=== PATIENT | female | born 1960 | race Two or more races ===

== ENCOUNTER 2023-01-17 15:37 | Inpatient (IN) | payer MEDICAID ==
[~2023-01-17] VITALS: Ht 160 cm; Wt 68.2 kg
[2023-01-17 16:20] LABS: Basophils # (auto) 0 10 ^3/uL (0-0.2); Lymphocytes # (auto) 0.3 10 ^3/uL (0.4-5.4); White Blood Cell 2.1 10^3/uL (4.4-10.8)
[2023-01-17 16:21] LABS: Basophils % (auto) 0.7 % (0.0-2.0); Eosinophils # (auto) 0.1 10 ^3/uL (0-0.8); Eosinophils % (auto) 2.4 % (0.0-7.0); Hematocrit 14.4 % (36.0-46.0); Mean Corpuscular Hemoglobin 20.5 pg (28.0-32.0); Mean Corpuscular Hgb Conc. 28.6 g/dL (32.0-36.0); Mean Corpuscular Volume 71.8 fL (80.0-100.0); Monocytes # (auto) 0.4 10 ^3/uL (0-1.3); Monocytes % (auto) 17.7 % (0.0-12.0); Neutrophils # (auto) 1.3 10 ^3/uL (1.6-8.6); Neutrophils % (auto) 64.2 % (37.0-80.0); Nucleated Red Blood Cells % 0.2 %; Red Blood Cells 2.01 10^6/uL (4.0-5.20)
[2023-01-17 16:28] LABS: Red Cell Distribution Width 20.6 % (11.8-14.3)
[2023-01-17 16:31] LABS: Hemoglobin 4.1 g/dL (12.2-16.2)
[2023-01-17 16:34] LABS: Alanine Aminotransferase 13 U/L (7-40); Alkaline Phosphatase 83 U/L (46-116); Anion Gap 8 (5-15); Aspartate Aminotransferase 18 U/L (13-40); BUN/Creatinine Ratio 22.4 (10.0-20.0); Blood Urea Nitrogen 15 mg/dL (9-23); Calcium 8.3 mg/dL (8.7-10.4); Carbon Dioxide 21 mmol/L (20-30); Chloride 112 mmol/L (98-107); Glucose 151 mg/dL (74-106); Potassium 3.7 mmol/L (3.5-5.1); Sodium 141 mmol/L (136-145)
[2023-01-17 16:35] LABS: Albumin 3.4 g/dL (3.2-4.8); Bilirubin, Total 1.8 mg/dL (0.2-1.0)
[2023-01-17 17:05] LABS: Anisocytosis Slight; Hypochromia Moderate; Ovalocytes FEW; Platelet Estimate Decreased
[2023-01-17 17:06] LABS: Rouleau Present
[2023-01-17 17:24] LABS: INR 1.31 (0.9-1.15); Partial Thromboplastin Time 25.2 SEC (24.5-34.5); Prothrombin Time 13.5 sec (9.3-11.8)
[2023-01-17] MEDS ORDERED: MORPHINE SULFATE INJ 2 MG/ml SYRG IV PRN (18:15)
[2023-01-17] MEDS ORDERED: DEXTROSE (50%) 50ML SYRG IV PRN (18:15)
[2023-01-17] MEDS ORDERED: ACETAMINOPHEN 325 MG TAB PO PRN (18:15)
[2023-01-17] MEDS ORDERED: NITROGLYCERIN 0.4 MG SL TAB SL PRN (18:15)
[2023-01-17] MEDS ORDERED: FOLI-119 PO (18:16)
[2023-01-17] MEDS ORDERED: GABA-1250 PO (18:16)
[2023-01-17] MEDS ORDERED: SPIR25TA8 PO (18:16)
[2023-01-17] MEDS ORDERED: AMLO1TAB22 PO (18:16)
[2023-01-17] MEDS ORDERED: METO25TA93 PO (18:16)
[2023-01-17] MEDS ORDERED: LEVO100T8 PO (18:16)
[2023-01-17] MEDS ORDERED: PANT40T PO (18:16)
[2023-01-17 18:51] LABS: Triglycerides 69 mg/dL (< 150)
[2023-01-17 18:52] LABS: LDL Cholesterol 61 mg/dL (< 100)
[2023-01-17 18:53] LABS: Cholesterol 96 mg/dL (< 200); HDL Cholesterol 28 mg/dL (40-59)
[2023-01-17 19:25] VITALS: PULSE 92; RESP 10; O2SAT 100
[2023-01-17 20:03] VITALS: BP 146/55; PULSE 90; RESP 10; TEMP 98.6
[2023-01-17 20:18] VITALS: BP 143/48; PULSE 91; RESP 11; RESP 15; TEMP 98.5
[2023-01-17] MEDS: SODIUM CHLORIDE 0.9% 1,000 ML IV SCH (21:22)
[2023-01-17] MEDS: InsuLIN REG 1unit/0.01ml Soln (100units/ml) SC SCH (22:00)
[2023-01-17] MEDS: ACCU-CHEK COMFORT CURVE STRIP VI SCH (22:20)
[2023-01-17 22:35] VITALS: BP 143/56; PULSE 91; RESP 14; TEMP 98.5
[2023-01-17 23:10] VITALS: BP 140/51; PULSE 94; RESP 12; TEMP 98.5
[2023-01-17 23:25] VITALS: BP 131/45; PULSE 91; RESP 14; TEMP 98.4
[2023-01-18] VITALS (9 sets, daily range): BP systolic 102–153; BP diastolic 47–61; PULSE 80–96; RESP 13–21; TEMP 97.7–98.5; O2SAT 97–98
[2023-01-18 03:39] LABS: Albumin 2.8 g/dL (3.2-4.8); Alkaline Phosphatase 65 U/L (46-116); Anion Gap 6 (5-15); Aspartate Aminotransferase 14 U/L (13-40); BUN/Creatinine Ratio 19.6 (10.0-20.0); Bilirubin, Total 2.2 mg/dL (0.2-1.0); Blood Urea Nitrogen 11 mg/dL (9-23); Calcium 7.5 mg/dL (8.7-10.4); Carbon Dioxide 20 mmol/L (20-30); Chloride 116 mmol/L (98-107); Glucose 103 mg/dL (74-106); Hematocrit 18.2 % (36.0-46.0); Mean Corpuscular Hemoglobin 24.1 pg (28.0-32.0); Mean Corpuscular Hgb Conc. 30.1 g/dL (32.0-36.0); Mean Corpuscular Volume 80.1 fL (80.0-100.0); Potassium 3.4 mmol/L (3.5-5.1); Red Blood Cells 2.28 10^6/uL (4.0-5.20); Sodium 142 mmol/L (136-145); Total Protein 4.2 g/dL (5.7-8.2)
[2023-01-18 03:48] LABS: Alanine Aminotransferase < 9 U/L (7-40); Red Cell Distribution Width 22.5 % (11.8-14.3)
[2023-01-18 03:49] LABS: White Blood Cell 1.4 10^3/uL (4.4-10.8)
[2023-01-18 03:50] LABS: Basophils % (manual) 0 (0.0-2.0); Blast Cells 0; Hemoglobin 5.5 g/dL (12.2-16.2); Metamyelocytes % 0; Myelocytes % 0; Promyelocytes % 0; Reactive Lymphocytes 0
[2023-01-18 05:30] LABS: Anisocytosis Slight; Band Neutrophils % (manual) 2; Eosinophils % (manual) 2 (0-7); Large Platelets FEW; Lymphocytes % (manual) 17 (10.0-50.0); Monocytes % (manual) 14 (0-12); Ovalocytes MODERATE
[2023-01-18 05:31] LABS: Hypochromia Slight; Platelet Estimate Decreased
[2023-01-18] MEDS: InsuLIN REG 1unit/0.01ml Soln (100units/ml) SC SCH ×4 (06:36→23:00)
[2023-01-18] MEDS: ACCU-CHEK COMFORT CURVE STRIP VI SCH ×4 (06:36→23:00)
[2023-01-18] MEDS ORDERED: POTASSIUM EFFERVESENT TAB 25 MEQ PO ONE (10:30)
[2023-01-18] MEDS: SODIUM CHLORIDE 0.9% 1,000 ML IV SCH (11:28)
[2023-01-18] MEDS ORDERED: FUROSEMIDE 40 MG/4 ML VIAL IV ONE (13:00)
[2023-01-18 15:50] LABS: Basophils # (auto) 0 10 ^3/uL (0-0.2); Eosinophils # (auto) 0.1 10 ^3/uL (0-0.8); Eosinophils % (auto) 2.9 % (0.0-7.0); Hemoglobin 9.2 g/dL (12.2-16.2); Lymphocytes # (auto) 0.3 10 ^3/uL (0.4-5.4); Mean Corpuscular Hgb Conc. 31.6 g/dL (32.0-36.0)
[2023-01-18 15:51] LABS: Basophils % (auto) 0.6 % (0.0-2.0); Lymphocytes % (auto) 10.3 % (10.0-50.0); Mean Corpuscular Hemoglobin 25.4 pg (28.0-32.0); Mean Corpuscular Volume 80.5 fL (80.0-100.0); Monocytes # (auto) 0.5 10 ^3/uL (0-1.3); Monocytes % (auto) 15.9 % (0.0-12.0); Neutrophils % (auto) 70.3 % (37.0-80.0); Nucleated Red Blood Cells % 0.2 %; Red Blood Cells 3.61 10^6/uL (4.0-5.20); White Blood Cell 2.8 10^3/uL (4.4-10.8)
[2023-01-18 15:52] LABS: Red Cell Distribution Width 21.9 % (11.8-14.3)
[2023-01-18 16:36] LABS: Platelet Estimate Decreased
[2023-01-18 16:37] LABS: Anisocytosis Slight; Large Platelets FEW
[2023-01-18 18:47] LABS: Urine Bacteria FEW /hpf (None Seen); Urine Blood Negative /uL (Negative); Urine Clarity Clear (Clear); Urine Color Colorless (Yellow); Urine Protein, UAD Negative (Negative); Urine Specific Gravity 1.008 (1.001-1.035); Urine Urobilinogen Normal (Negative); Urine WBC <1 /hpf (0 - 5)
[2023-01-18 19:37] LABS: Basophils # (auto) 0 10 ^3/uL (0-0.2); Eosinophils # (auto) 0.1 10 ^3/uL (0-0.8); Lymphocytes # (auto) 0.3 10 ^3/uL (0.4-5.4); Lymphocytes % (auto) 11.4 % (10.0-50.0); Monocytes # (auto) 0.4 10 ^3/uL (0-1.3); Red Blood Cells 3.44 10^6/uL (4.0-5.20)
[2023-01-18 19:42] LABS: Basophils % (auto) 0.7 % (0.0-2.0); Eosinophils % (auto) 2.7 % (0.0-7.0); Hematocrit 27.3 % (36.0-46.0); Hemoglobin 8.8 g/dL (12.2-16.2); Mean Corpuscular Hemoglobin 25.5 pg (28.0-32.0); Mean Corpuscular Hgb Conc. 32.1 g/dL (32.0-36.0); Mean Corpuscular Volume 79.5 fL (80.0-100.0); Monocytes % (auto) 14.3 % (0.0-12.0); Neutrophils % (auto) 70.9 % (37.0-80.0); Nucleated Red Blood Cells % 0.1 %; White Blood Cell 2.8 10^3/uL (4.4-10.8)
[2023-01-18 19:43] LABS: Red Cell Distribution Width 22.5 % (11.8-14.3)
[2023-01-18] MEDS ORDERED: diphenhdrAMINE HCL 25 MG CAP PO ONE (20:30)
[2023-01-19 04:52] LABS: Hematocrit 25.3 % (36.0-46.0); Mean Corpuscular Hemoglobin 25.8 pg (28.0-32.0); Mean Corpuscular Hgb Conc. 31.6 g/dL (32.0-36.0); Mean Corpuscular Volume 81.8 fL (80.0-100.0)
[2023-01-19 05:00] LABS: Chloride 113 mmol/L (98-107); Potassium 3.5 mmol/L (3.5-5.1); Sodium 143 mmol/L (136-145)
[2023-01-19 05:01] LABS: Anion Gap 5 (5-15); Carbon Dioxide 25 mmol/L (20-30)
[2023-01-19 05:02] LABS: Calcium 7.9 mg/dL (8.7-10.4)
[2023-01-19 05:06] LABS: Glucose 89 mg/dL (74-106)
[2023-01-19 05:07] LABS: BUN/Creatinine Ratio 20.4 (10.0-20.0); Blood Urea Nitrogen 10 mg/dL (9-23)
[2023-01-19 05:08] LABS: White Blood Cell 1.7 10^3/uL (4.4-10.8)
[2023-01-19 05:09] LABS: Band Neutrophils % (manual) 0; Basophils % (manual) 0 (0.0-2.0); Blast Cells 0; Metamyelocytes % 0; Myelocytes % 0; Promyelocytes % 0; Reactive Lymphocytes 0
[2023-01-19 05:12] VITALS: BP 140/54; PULSE 76; RESP 13; O2SAT 97
[2023-01-19] MEDS: InsuLIN REG 1unit/0.01ml Soln (100units/ml) SC SCH ×2 (06:54→11:30)
[2023-01-19] MEDS: ACCU-CHEK COMFORT CURVE STRIP VI SCH ×2 (06:54→11:45)
[2023-01-19 10:14] LABS: Eosinophils % (manual) 5 (0-7); Lymphocytes % (manual) 12 (10.0-50.0); Monocytes % (manual) 9 (0-12)
[2023-01-19 10:15] LABS: Platelet Estimate Decreased
== END 2023-01-19 11:55 | disposition home or self-care (01) | DRG 691 ==
LOC: ER 15:37 → TELE 18:12
PROVIDERS: ADMIT Internal Medicine Geriatric Medicine; ATTEND Student in an Organized Health Care Education/Training Program
PROC: 30233N1 Transfusion of Nonautologous Red Blood Cells into Peripheral Vein, Percutaneous Approach (ICD-10-PCS; principal; 2023-01-17)
DX: C90.00 Multiple myeloma not having achieved remission (principal); D61.818 Other pancytopenia; E44.0 Moderate protein-calorie malnutrition; I50.9 Heart failure, unspecified; I11.0 Hypertensive heart disease with heart failure; E11.65 Type 2 diabetes mellitus with hyperglycemia; G43.909 Migraine, unspecified, not intractable, without status migrainosus; E87.6 Hypokalemia; Z80.1 Family history of malignant neoplasm of trachea, bronchus and lung; Z85.3 Personal history of malignant neoplasm of breast; Z86.19 Personal history of other infectious and parasitic diseases; Z90.12 Acquired absence of left breast and nipple; Z92.21 Personal history of antineoplastic chemotherapy; Z92.3 Personal history of irradiation
CPT/HCPCS: 36415; 71045; 80048; 80053; 80061; 81001; 82962; 83036; 83540; 83550; 83880; 84443; 84484; 85007; 85025; 85027; 85610; 85730; 86850; 86900; 86901; 86920; 93005; 99291; G0378